=== PATIENT | male | born 1965 ===

== ENCOUNTER → 2024-11-02 | Outpatient (CLI) | payer MEDICAID ==
--- NOTE | 2024-11-03 14:02 | DVHSR ---
APPROVED REPORT EXAM: Two-dimensional and M-mode echocardiogram with Doppler and color Doppler. DIMENSIONS LVDd5.3 (3.8-5.7cm)LA (2D)4.3 (1.9-4.0cm)Aortic Root4.8 (2.0-3.7cm) LVDs3.2 (2.5-4.0cm)LA (MM) (1.9-4.0cm)Aortic Cusp Exc1.6 (1.5-2.0cm) EF (%) 70.3 (55-70%)Rt. Atrium3.6 (1.9-4.0cm)Asc. Aorta5.2 cm IVSd1.4 (0.7-1.1cm)RV (D)2.4 (1.8-2.4cm) PWd1.3 (0.7-1.1cm) Mitral Valve MitralMitral Stenosis E wave0.66m/sMV Mean GR.mmHg A wave1.01m/sMV Peak GR.mmHg E/A ratio0.72D MVAcm2 DECEL [id number] 1/2 [place] Aortic Valve Aortic ValveAortic Stenosis V10.87m/Geoff Mean GR.5mmHg V21.54m/Geoff Peak GR.10mmHg Pulmonic Valve V20.82m/s Tricuspid Valve [id number] LEFT VENTRICLE The Ejection Fraction is >55%. ATRIA The left atrium is mildly dilated. The right atrium size is normal. MITRAL VALVE Mitral annular calcification is mild. There is no mitral valve regurgitation noted. PULMONIC VALVE The pulmonic valve is not well visualized. TRICUSPID VALVE The tricuspid valve is grossly normal. AORTIC VALVE The aortic valve opens well. There is trace to mild aortic regurgitation. GREAT VESSELS There is mild aortic root dilatation. There is an aneurysm of the ascending aorta. PERICARDIAL EFFUSION There is no pericardial effusion. Other Information Technically limited study due to body habitus. Conclusion EF >65% HYPERDYNAMIC CONTRACTILITY MILD AI LVH DILATED ASCENDING AORTA DILATED AORTIC ROOT
== END | disposition home or self-care (01) ==
LOC: Rad HDHVI 13:06
PROVIDERS: ATTEND Internal Medicine Cardiovascular Disease
DX: I08.0 Rheumatic disorders of both mitral and aortic valves (principal); R06.02 Shortness of breath
CPT/HCPCS: 93306

== ENCOUNTER → 2024-11-10 | Outpatient (CLI) | payer MEDICAID ==
[~2024-11-10] VITALS: Ht 175.3 cm; Wt 98.9 kg
[~2024-11-10] MED LIST: ADENOSINE 83 MG in GIVE UN-DILUTED 0 ML IV ONE; ADENOSINE 90 MG/30 ML INJ IV ONE; FUROSEMIDE 20 MG TAB ONE; METOPROLOL TARTRATE 25 MG TAB ONE; NIFEdipine ER 30 MG TAB PO ONE
== END | disposition home or self-care (01) ==
LOC: Rad HDHVI 12:58
PROVIDERS: ATTEND Internal Medicine Cardiovascular Disease
DX: I11.0 Hypertensive heart disease with heart failure (principal); I50.33 Acute on chronic diastolic (congestive) heart failure; R06.02 Shortness of breath; F17.210 Nicotine dependence, cigarettes, uncomplicated
CPT/HCPCS: 78452; 93005; 96374; 96375; A9500; J0153